=== PATIENT | female | born 1930 | race Caucasian/White ===

== ENCOUNTER 2017-10-21 10:05 | Inpatient (IN) ==
[2017-10-21 10:59] LABS: Basophils % 0.4 % (0.0-0.8); Eosinophils # 0.1 10*3/uL (0.0-0.87); Eosinophils % 1.7 % (0.00-10.9); Hematocrit 28.9 VOL% (35.7-47.0); Hemoglobin 9.2 GM/DL (12.0-16.0); Immature Granulocytes % 0.4 %; Immature Granulocytes Absolute 0.03 #; Lymphocytes # 1.4 10*3/uL (1.4-4.0); Lymphocytes % 18.9 % (21.3-54.2); Mean Corpuscular HGB Conc 31.8 GM/DL (32-36); Mean Corpuscular Hemoglobin 31 PG (27-34); Mean Corpuscular Volume 96.7 FL (87-102); Mean Platelet Volume 9.4 FL (9.6-12.0); Monocytes # 0.6 10*3/uL (0.11-0.8); Monocytes % 8.3 % (1.7-12.7); Neutrophils % 70.3 % (38.7-73.9); Platelet Count 190 T/CUMM (130-400); Red Blood Count 2.99 MC/CUMM (3.8-5.5); Red Cell Distribution Width 14.9 % (9.3-17.3); White Blood Count 7.1 T/CUMM (4-12)
[2017-10-21 11:10] LABS: Alanine Aminotransferase 20 U/L (13-56); Albumin 3.2 G/DL (3.4-5.0); Alkaline Phosphatase 67 U/L (45-117); Aspartate Amino Transferase 22 U/L (0-37); Bilirubin,Total < 0.39 MG/DL (0.2-1.0); Blood Urea Nitrogen 29 MG/DL (7-18); Calcium 9.1 MG/DL (8.5-10.1); Glucose 99 MG/DL (74-106); Osmolality,Calculated 282.5 MOS/KG (273-304); Potassium 4.5 MMOL/L (3.5-5.1); Sodium 139 MMOL/L (136-145); Total Protein 7.1 G/DL (6.4-8.3)
[2017-10-21 12:06] LABS: Apearance,Urine CLEAR (Clear); Bilirubin,Urine Negative (Negative); Blood, Urine Negative (Negative); Glucose,Urine (UA) Negative (Negative); Ketones,Urine Negative (Negative); Nitrite,Urine Negative (Negative); Protein,Urine Negative; RBC,Urine 1 /HPF (0-4); Squamous Epithelial Cell,Urine Occasional /HPF (0-10); Urine Color Straw (Yellow); Urine Specific Gravity 1.012 (1.001-1.035); Urine Urobilinogen < 2.0 EU/DL (0.2-1.0); WBC,Urine 1 /HPF (0-6)
[2017-10-21 14:05] LABS: PT Patient Result 56.9 SECS
[2017-10-21 14:07] LABS: INR 5.7; Partial Thromboplastin Time 45.5 SECS (0-40)
[2017-10-21] MEDS ORDERED: methylPREDNISolone SOD SUC 125 MG/2 ML VIAL ONE (14:10)
[2017-10-21] MEDS ORDERED: diphenhydrAMINE 50 MG/1 ML VIAL ONE (14:10)
[2017-10-21] MEDS ORDERED: MORPHINE 4 MG/1 ML VIAL ONE (14:20)
[2017-10-21] MEDS ORDERED: ONDANSETRON 4 MG/2 ML VIAL ONE (14:25)
[2017-10-21] MEDS ORDERED: cefTRIAXone 1,000 MG in SODIUM CHLORIDE 0.9% 100 ML IV STA (14:32)
[2017-10-21] MEDS ORDERED: AZITHROMYCIN INJ 500 MG in SODIUM CHLORIDE 0.9% 250 ML IV STA (14:32)
[2017-10-21] MEDS ORDERED: ALBUTEROL 2.5 MG/3 ML NEB RESP TX PRN (14:57)
[2017-10-21] MEDS ORDERED: FUROSEMIDE 40 MG/4 ML VIAL IV STA (15:11)
[2017-10-21] MEDS ORDERED: diphenhydrAMINE 50 MG/1 ML VIAL IV STA (15:25)
[2017-10-21] MEDS ORDERED: ONDANSETRON 4 MG/2 ML VIAL IV STA (15:25)
[2017-10-21] MEDS ORDERED: MORPHINE 4 MG/1 ML VIAL IV STA (15:25)
[2017-10-21] MEDS ORDERED: methylPREDNISolone SOD SUC 125 MG/2 ML VIAL IV STA (15:25)
[2017-10-21] MEDS ORDERED: FUROSEMIDE 20 MG/2 ML VIAL IV SCH (16:00)
[2017-10-21] MEDS ORDERED: AZITHROMYCIN INJ 500 MG in SODIUM CHLORIDE 0.9% 250 ML IV SCH (18:00)
[2017-10-21] MEDS ORDERED: cefTRIAXone 1,000 MG in SYRINGE 1 EACH IV SCH (18:00)
[2017-10-21] MEDS: ALBUTEROL/IPRATROPIUM 3 ML NEB RESP TX SCH (19:39)
[2017-10-21] MEDS: guaiFENesin/DM ER 600-30 MG TABLET PO SCH (20:40)
[2017-10-21] MEDS ORDERED: BISACODYL 5 MG TABLET PO SCH (21:00)
[2017-10-22] MEDS: ALBUTEROL/IPRATROPIUM 3 ML NEB RESP TX SCH ×4 (00:20→19:04)
[2017-10-22] MEDS ORDERED: NITROGLYCERIN SL 0.4 MG TABLET SL PRN (01:31)
[2017-10-22] MEDS ORDERED: NITROGLYCERIN SL 0.4 MG TABLET SL ONE (01:32)
[2017-10-22] MEDS: MORPHINE 4 MG/1 ML VIAL IV PRN ×3 (01:38→22:41)
[2017-10-22 01:51] LABS: Basophils % 0.1 % (0.0-0.8); Hematocrit 27.1 VOL% (35.7-47.0); Immature Granulocytes % 0.9 %; Immature Granulocytes Absolute 0.07 #; Lymphocytes # 0.9 10*3/uL (1.4-4.0); Lymphocytes % 11.5 % (21.3-54.2); Mean Corpuscular HGB Conc 33.2 GM/DL (32-36); Mean Corpuscular Hemoglobin 32 PG (27-34); Mean Corpuscular Volume 95.1 FL (87-102); Mean Platelet Volume 9.6 FL (9.6-12.0); Monocytes # 0.1 10*3/uL (0.11-0.8); Monocytes % 0.7 % (1.7-12.7); Neutrophils # 6.6 10*3/uL (1.4-7.4); Neutrophils % 86.8 % (38.7-73.9); Platelet Count 185 T/CUMM (130-400); Red Blood Count 2.85 MC/CUMM (3.8-5.5); Red Cell Distribution Width 15.1 % (9.3-17.3); White Blood Count 7.6 T/CUMM (4-12)
[2017-10-22 02:15] LABS: Alanine Aminotransferase 17 U/L (13-56); Alanine Aminotransferase 19 U/L (13-56); Albumin 3.1 G/DL (3.4-5.0); Albumin 3.5 G/DL (3.4-5.0); Alkaline Phosphatase 68 U/L (45-117); Alkaline Phosphatase 69 U/L (45-117); Aspartate Amino Transferase 18 U/L (0-37); Aspartate Amino Transferase 20 U/L (0-37); Bilirubin,Total < 0.39 MG/DL (0.2-1.0); Blood Urea Nitrogen 33 MG/DL (7-18); Blood Urea Nitrogen 34 MG/DL (7-18); Calcium 8.7 MG/DL (8.5-10.1); Glucose 157 MG/DL (74-106); Glucose 160 MG/DL (74-106); Osmolality,Calculated 282.8 MOS/KG (273-304); Osmolality,Calculated 283.8 MOS/KG (273-304); Potassium 4.1 MMOL/L (3.5-5.1); Sodium 137 MMOL/L (136-145); Total Protein 7.3 G/DL (6.4-8.3)
[2017-10-22 02:36] LABS: Partial Thromboplastin Time 52.3 SECS (0-40)
[2017-10-22] MEDS: NITROGLYCERIN 2% OINT 1 INCH/GM PACK TOP ONE ×2 (02:51→03:10)
[2017-10-22] MEDS: LABETALOL 20 MG/4 ML SYRINGE IV ONE ×2 (02:52→04:50)
[2017-10-22 03:00] LABS: Platelet Estimate Normal
[2017-10-22] MEDS ORDERED: FUROSEMIDE 20 MG/2 ML VIAL IV SCH (08:00)
[2017-10-22] MEDS ORDERED: PANTOPRAZOLE 40 MG TABLET PO SCH (09:00)
[2017-10-22] MEDS: IRON (CARBONYL) 45 MG TABLET PO SCH (10:12)
[2017-10-22] MEDS: amLODIPine 5 MG TABLET PO SCH (10:12)
[2017-10-22] MEDS: OMEGA 3 ACID ETHYL ESTERS 1 GM CAPSULE PO SCH (10:12)
[2017-10-22] MEDS: guaiFENesin/DM ER 600-30 MG TABLET PO SCH ×2 (10:12→21:22)
[2017-10-22] MEDS: PARoxetine 20 MG TABLET PO SCH (10:13)
[2017-10-22] MEDS: PANTOPRAZOLE 40 MG TABLET PO SCH ×2 (10:13→21:23)
[2017-10-22] MEDS: ISOSORBIDE MONONITRATE 60 MG TABLET PO SCH (10:13)
[2017-10-22] MEDS: COENZYME Q10 100 MG CAPSULE PO SCH (10:14)
[2017-10-22] MEDS: POLYETHYLENE GLYCOL POWDER 17 GM PACK PO SCH ×2 (10:20→21:27)
[2017-10-22] MEDS ORDERED: SODIUM CHLORIDE 0.9% 1,000 ML IV PRN (12:45)
[2017-10-22] MEDS ORDERED: ALUM/MAG/SIMETH/LIDO VISC 1:1 30 ML BOTTLE PO ONE ×2 (13:36→13:37)
[2017-10-22] MEDS ORDERED: HYOSCYAMINE 0.125 MG TABLET PO PRN (14:12)
[2017-10-22] MEDS ORDERED: AZITHROMYCIN INJ 500 MG in SODIUM CHLORIDE 0.9% 250 ML IV SCH (15:00)
[2017-10-22] MEDS ORDERED: ALUM/MAG/SIMETH/LIDO VISC 1:1 30 ML BOTTLE PO PRN (16:13)
[2017-10-22] MEDS: GABAPENTIN 100 MG CAPSULE PO SCH ×2 (16:30→21:23)
[2017-10-22] MEDS: ACETAMINOPHEN 325 MG TABLET PO SCH ×2 (16:30→21:22)
[2017-10-22] MEDS: LIDOCAINE 5% PATCH TRANSDERM SCH (16:30)
[2017-10-22 16:53] LABS: Hematocrit 21.5 VOL% (35.7-47.0); Hemoglobin 6.7 GM/DL (12.0-16.0)
[2017-10-22] MEDS: cefTRIAXone 1,000 MG in SYRINGE 1 EACH IV SCH (18:20)
[2017-10-22] MEDS ORDERED: CHOLESTOFF PO SCH (21:00)
[2017-10-22] MEDS: HYOSCYAMINE 0.125 MG TABLET PO SCH (21:22)
[2017-10-22] MEDS ORDERED: traZODone 50 MG TABLET PO ONE (23:35)
[2017-10-23] MEDS: ALBUTEROL/IPRATROPIUM 3 ML NEB RESP TX SCH ×4 (01:24→18:56)
[2017-10-23 05:16] LABS: Basophils % 0.4 % (0.0-0.8); Eosinophils # 0.1 10*3/uL (0.0-0.87); Eosinophils % 0.6 % (0.00-10.9); Hematocrit 29.1 VOL% (35.7-47.0); Hemoglobin 9.2 GM/DL (12.0-16.0); Immature Granulocytes % 0.6 %; Immature Granulocytes Absolute 0.05 #; Lymphocytes # 1.3 10*3/uL (1.4-4.0); Lymphocytes % 15.6 % (21.3-54.2); Mean Corpuscular HGB Conc 31.6 GM/DL (32-36); Mean Corpuscular Hemoglobin 31 PG (27-34); Mean Platelet Volume 9.4 FL (9.6-12.0); Monocytes # 0.8 10*3/uL (0.11-0.8); Monocytes % 9.2 % (1.7-12.7); Neutrophils # 6.2 10*3/uL (1.4-7.4); Neutrophils % 73.6 % (38.7-73.9); Platelet Count 157 T/CUMM (130-400); Red Cell Distribution Width 15.8 % (9.3-17.3); White Blood Count 8.5 T/CUMM (4-12)
[2017-10-23 05:24] LABS: Hematocrit 28.4 VOL% (35.7-47.0); Hemoglobin 9.4 GM/DL (12.0-16.0)
[2017-10-23 05:34] LABS: Calcium 8.1 MG/DL (8.5-10.1); Osmolality,Calculated 290.1 MOS/KG (273-304); Potassium 4.4 MMOL/L (3.5-5.1)
[2017-10-23 05:37] LABS: Albumin 3.1 G/DL (3.4-5.0); Bilirubin,Total 0.4 MG/DL (0.2-1.0); CKMB % 4.9 %; Calcium 8.1 MG/DL (8.5-10.1); Osmolality,Calculated 288.3 MOS/KG (273-304); Potassium 4.3 MMOL/L (3.5-5.1); Total Protein 6.6 G/DL (6.4-8.3)
[2017-10-23] MEDS: ISOSORBIDE MONONITRATE 60 MG TABLET PO SCH (09:00)
[2017-10-23] MEDS: amLODIPine 5 MG TABLET PO SCH (09:00)
[2017-10-23] MEDS: LISINOPRIL 20 MG TABLET PO SCH (09:00)
[2017-10-23 09:59] LABS: INR 2.9
[2017-10-23 10:05] LABS: PT Patient Result 29.6 SECS
[2017-10-23] MEDS: POLYETHYLENE GLYCOL POWDER 17 GM PACK PO SCH ×2 (10:55→22:48)
[2017-10-23] MEDS: GABAPENTIN 100 MG CAPSULE PO SCH ×3 (10:55→21:24)
[2017-10-23] MEDS: ACETAMINOPHEN 325 MG TABLET PO SCH ×2 (10:55→21:25)
[2017-10-23] MEDS: HYOSCYAMINE 0.125 MG TABLET PO SCH ×2 (10:55→22:48)
[2017-10-23] MEDS: PARoxetine 20 MG TABLET PO SCH (10:55)
[2017-10-23] MEDS: IRON (CARBONYL) 45 MG TABLET PO SCH (10:55)
[2017-10-23] MEDS: AZITHROMYCIN 250 MG TABLET PO SCH (10:55)
[2017-10-23] MEDS: COENZYME Q10 100 MG CAPSULE PO SCH (10:55)
[2017-10-23] MEDS: PANTOPRAZOLE 40 MG TABLET PO SCH ×2 (10:55→22:48)
[2017-10-23] MEDS: LIDOCAINE 5% PATCH TRANSDERM SCH (10:55)
[2017-10-23] MEDS: OMEGA 3 ACID ETHYL ESTERS 1 GM CAPSULE PO SCH (10:55)
[2017-10-23] MEDS: DOCUSATE SODIUM 100 MG CAPSULE PO SCH (10:55)
[2017-10-23] MEDS: guaiFENesin/DM ER 600-30 MG TABLET PO SCH ×2 (10:55→22:48)
[2017-10-23] MEDS ORDERED: ALPRAZolam 0.25 MG TABLET PO PRN (13:06)
[2017-10-23] MEDS ORDERED: PHYTONADIONE 10 MG/1 ML AMP SUBCUT ONE (13:13)
[2017-10-23] MEDS: cefTRIAXone 1,000 MG in SYRINGE 1 EACH IV SCH (14:55)
[2017-10-24] MEDS: ALBUTEROL/IPRATROPIUM 3 ML NEB RESP TX SCH ×4 (00:41→20:01)
[2017-10-24 04:49] LABS: Basophils % 0.5 % (0.0-0.8); Eosinophils # 0.3 10*3/uL (0.0-0.87); Eosinophils % 4.8 % (0.00-10.9); Hematocrit 28.8 VOL% (35.7-47.0); Hemoglobin 9.1 GM/DL (12.0-16.0); Immature Granulocytes % 0.3 %; Immature Granulocytes Absolute 0.02 #; Lymphocytes # 0.8 10*3/uL (1.4-4.0); Lymphocytes % 13.8 % (21.3-54.2); Mean Corpuscular HGB Conc 31.6 GM/DL (32-36); Mean Corpuscular Hemoglobin 31 PG (27-34); Mean Corpuscular Volume 96.6 FL (87-102); Mean Platelet Volume 9.7 FL (9.6-12.0); Monocytes # 0.6 10*3/uL (0.11-0.8); Monocytes % 9.5 % (1.7-12.7); Neutrophils # 4.3 10*3/uL (1.4-7.4); Neutrophils % 71.1 % (38.7-73.9); Platelet Count 158 T/CUMM (130-400); Red Blood Count 2.98 MC/CUMM (3.8-5.5); Red Cell Distribution Width 15.9 % (9.3-17.3); White Blood Count 6.1 T/CUMM (4-12)
[2017-10-24 04:55] LABS: INR 2.3
[2017-10-24 04:56] LABS: INR 2.3
[2017-10-24 04:58] LABS: PT Patient Result 23.1 SECS; PT Patient Result 23.3 SECS
[2017-10-24 05:08] LABS: Albumin 2.6 G/DL (3.4-5.0); Bilirubin,Total 0.4 MG/DL (0.2-1.0); Calcium 8.1 MG/DL (8.5-10.1); Osmolality,Calculated 283.4 MOS/KG (273-304); Potassium 4.2 MMOL/L (3.5-5.1)
[2017-10-24 05:13] LABS: Calcium 8.3 MG/DL (8.5-10.1); Osmolality,Calculated 286.3 MOS/KG (273-304); Potassium 4.3 MMOL/L (3.5-5.1)
[2017-10-24] MEDS ORDERED: PROPOFOL 200 MG/20 ML VIAL IV ONE (08:38)
[2017-10-24] MEDS ORDERED: LIDOCAINE 100 MG/5 ML SYRINGE ONE (08:38)
[2017-10-24] MEDS ORDERED: PHYTONADIONE 10 MG/1 ML AMP IV ONE (08:56)
[2017-10-24] MEDS: COENZYME Q10 100 MG CAPSULE PO SCH (10:59)
[2017-10-24] MEDS: LIDOCAINE 5% PATCH TRANSDERM SCH (11:01)
[2017-10-24] MEDS: DOCUSATE SODIUM 100 MG CAPSULE PO SCH (11:01)
[2017-10-24] MEDS: HYOSCYAMINE 0.125 MG TABLET PO SCH ×2 (11:01→20:13)
[2017-10-24] MEDS: IRON (CARBONYL) 45 MG TABLET PO SCH (11:01)
[2017-10-24] MEDS: BISACODYL 5 MG TABLET PO SCH ×2 (11:01→16:55)
[2017-10-24] MEDS: ISOSORBIDE MONONITRATE 60 MG TABLET PO SCH (11:01)
[2017-10-24] MEDS: GABAPENTIN 100 MG CAPSULE PO SCH ×3 (11:02→20:13)
[2017-10-24] MEDS: guaiFENesin/DM ER 600-30 MG TABLET PO SCH ×2 (11:02→20:13)
[2017-10-24] MEDS: LISINOPRIL 20 MG TABLET PO SCH (11:02)
[2017-10-24] MEDS: amLODIPine 5 MG TABLET PO SCH (11:02)
[2017-10-24] MEDS: PANTOPRAZOLE 40 MG TABLET PO SCH ×2 (11:02→20:13)
[2017-10-24] MEDS: OMEGA 3 ACID ETHYL ESTERS 1 GM CAPSULE PO SCH (11:02)
[2017-10-24] MEDS: PARoxetine 20 MG TABLET PO SCH (11:02)
[2017-10-24] MEDS: ACETAMINOPHEN 325 MG TABLET PO SCH ×2 (11:02→20:14)
[2017-10-24] MEDS: POLYETHYLENE GLYCOL POWDER 17 GM PACK PO SCH ×2 (11:02→20:14)
[2017-10-24] MEDS: AZITHROMYCIN 250 MG TABLET PO SCH (11:03)
[2017-10-24] MEDS: cefTRIAXone 1,000 MG in SYRINGE 1 EACH IV SCH (15:50)
[2017-10-24] MEDS ORDERED: POLYETHYLENE GLYCOL POWDER 255 GM BOTTLE PO ONE (18:00)
[2017-10-24] MEDS ORDERED: MAGNESIUM CITRATE 300 ML BOTTLE PO ONE (21:00)
[2017-10-25] MEDS: BISACODYL 5 MG TABLET PO SCH (00:08)
[2017-10-25] MEDS: ALBUTEROL/IPRATROPIUM 3 ML NEB RESP TX SCH ×4 (00:21→20:16)
[2017-10-25 05:43] LABS: Basophils % 0.3 % (0.0-0.8); Eosinophils # 0.3 10*3/uL (0.0-0.87); Eosinophils % 4.2 % (0.00-10.9); Hematocrit 29.1 VOL% (35.7-47.0); Hemoglobin 9.1 GM/DL (12.0-16.0); Immature Granulocytes % 0.3 %; Immature Granulocytes Absolute 0.02 #; Lymphocytes # 0.6 10*3/uL (1.4-4.0); Lymphocytes % 9.5 % (21.3-54.2); Mean Corpuscular HGB Conc 31.3 GM/DL (32-36); Mean Corpuscular Hemoglobin 30 PG (27-34); Mean Corpuscular Volume 97.3 FL (87-102); Mean Platelet Volume 9.4 FL (9.6-12.0); Monocytes # 0.6 10*3/uL (0.11-0.8); Monocytes % 9.2 % (1.7-12.7); Neutrophils # 4.7 10*3/uL (1.4-7.4); Neutrophils % 76.5 % (38.7-73.9); Platelet Count 159 T/CUMM (130-400); Red Blood Count 2.99 MC/CUMM (3.8-5.5); Red Cell Distribution Width 14.8 % (9.3-17.3); White Blood Count 6.1 T/CUMM (4-12)
[2017-10-25 06:03] LABS: Calcium 8.1 MG/DL (8.5-10.1); Osmolality,Calculated 279.4 MOS/KG (273-304); Potassium 3.6 MMOL/L (3.5-5.1)
[2017-10-25 06:06] LABS: INR 1.3; PT Patient Result 13.6 SECS; PT Patient Result 13.7 SECS; Partial Thromboplastin Time 29.8 SECS (0-40)
[2017-10-25] MEDS ORDERED: PROPOFOL 200 MG/20 ML VIAL IV ONE (09:00)
[2017-10-25] MEDS ORDERED: LIDOCAINE 100 MG/5 ML SYRINGE ONE (09:00)
[2017-10-25] MEDS: DOCUSATE SODIUM 100 MG CAPSULE PO SCH (10:18)
[2017-10-25] MEDS: COENZYME Q10 100 MG CAPSULE PO SCH (10:18)
[2017-10-25] MEDS: IRON (CARBONYL) 45 MG TABLET PO SCH (10:18)
[2017-10-25] MEDS: PARoxetine 20 MG TABLET PO SCH (10:19)
[2017-10-25] MEDS: POLYETHYLENE GLYCOL POWDER 17 GM PACK PO SCH ×2 (10:19→21:27)
[2017-10-25] MEDS: GABAPENTIN 100 MG CAPSULE PO SCH ×3 (10:19→21:27)
[2017-10-25] MEDS: OMEGA 3 ACID ETHYL ESTERS 1 GM CAPSULE PO SCH (10:19)
[2017-10-25] MEDS: amLODIPine 5 MG TABLET PO SCH (10:19)
[2017-10-25] MEDS: guaiFENesin/DM ER 600-30 MG TABLET PO SCH ×2 (10:19→21:26)
[2017-10-25] MEDS: HYOSCYAMINE 0.125 MG TABLET PO SCH ×2 (10:19→21:26)
[2017-10-25] MEDS: ISOSORBIDE MONONITRATE 60 MG TABLET PO SCH (10:19)
[2017-10-25] MEDS: LIDOCAINE 5% PATCH TRANSDERM SCH (10:19)
[2017-10-25] MEDS: AZITHROMYCIN 250 MG TABLET PO SCH (10:20)
[2017-10-25] MEDS: PANTOPRAZOLE 40 MG TABLET PO SCH ×2 (10:20→21:26)
[2017-10-25] MEDS: LISINOPRIL 20 MG TABLET PO SCH (10:20)
[2017-10-25] MEDS: ACETAMINOPHEN 325 MG TABLET PO SCH ×2 (10:20→21:26)
[2017-10-25 15:07] LABS: Basophils % 0.5 % (0.0-0.8); Eosinophils # 0.2 10*3/uL (0.0-0.87); Eosinophils % 3.5 % (0.00-10.9); Hematocrit 26.6 VOL% (35.7-47.0); Hemoglobin 8.5 GM/DL (12.0-16.0); Immature Granulocytes % 0.3 %; Immature Granulocytes Absolute 0.02 #; Lymphocytes # 0.8 10*3/uL (1.4-4.0); Lymphocytes % 12.1 % (21.3-54.2); Mean Corpuscular Hemoglobin 31 PG (27-34); Mean Corpuscular Volume 97.8 FL (87-102); Mean Platelet Volume 9.4 FL (9.6-12.0); Monocytes # 0.7 10*3/uL (0.11-0.8); Monocytes % 10.4 % (1.7-12.7); Neutrophils # 4.6 10*3/uL (1.4-7.4); Neutrophils % 73.2 % (38.7-73.9); Platelet Count 159 T/CUMM (130-400); Red Blood Count 2.72 MC/CUMM (3.8-5.5); Red Cell Distribution Width 14.6 % (9.3-17.3); White Blood Count 6.3 T/CUMM (4-12)
[2017-10-25] MEDS: cefTRIAXone 1,000 MG in SYRINGE 1 EACH IV SCH (15:21)
[2017-10-25 15:25] LABS: Albumin 2.5 G/DL (3.4-5.0); Bilirubin,Total 0.4 MG/DL (0.2-1.0); Calcium 8.1 MG/DL (8.5-10.1); Osmolality,Calculated 279.4 MOS/KG (273-304); Potassium 3.4 MMOL/L (3.5-5.1); Total Protein 5.5 G/DL (6.4-8.3)
[2017-10-25 16:37] LABS: Apearance,Urine CLEAR (Clear); Bilirubin,Urine Negative (Negative); Blood, Urine Negative (Negative); Glucose,Urine (UA) Negative (Negative); Ketones,Urine Negative (Negative); Nitrite,Urine Negative (Negative); Protein,Urine Negative; RBC,Urine <1 /HPF (0-4); Urine Color Yellow (Yellow); Urine Specific Gravity 1.011 (1.001-1.035); Urine Urobilinogen < 2.0 EU/DL (0.2-1.0); WBC,Urine 1 /HPF (0-6)
[2017-10-25] MEDS: POTASSIUM CHLORIDE RIDER 10 MEQ in PREMIX 1 EACH IV PRN (17:17)
[2017-10-25] MEDS: PHENOL 1.4% THROAT SPRAY 177 ML BOTTLE PO PRN (21:28)
[2017-10-26] MEDS: ALBUTEROL/IPRATROPIUM 3 ML NEB RESP TX SCH ×4 (00:40→19:24)
[2017-10-26 03:56] LABS: Basophils % 0.3 % (0.0-0.8); Eosinophils # 0.3 10*3/uL (0.0-0.87); Eosinophils % 4.9 % (0.00-10.9); Hematocrit 27.5 VOL% (35.7-47.0); Hemoglobin 8.9 GM/DL (12.0-16.0); Immature Granulocytes % 0.5 %; Immature Granulocytes Absolute 0.03 #; Lymphocytes % 15.8 % (21.3-54.2); Mean Corpuscular HGB Conc 32.4 GM/DL (32-36); Mean Corpuscular Hemoglobin 31 PG (27-34); Mean Corpuscular Volume 94.8 FL (87-102); Mean Platelet Volume 10.2 FL (9.6-12.0); Monocytes # 0.6 10*3/uL (0.11-0.8); Monocytes % 9.8 % (1.7-12.7); Neutrophils # 4.2 10*3/uL (1.4-7.4); Neutrophils % 68.7 % (38.7-73.9); Platelet Count 146 T/CUMM (130-400); Red Cell Distribution Width 14.5 % (9.3-17.3); White Blood Count 6.2 T/CUMM (4-12)
[2017-10-26 04:05] LABS: INR 1.1; PT Patient Result 11.8 SECS
[2017-10-26 04:05] LABS: INR 1.1; PT Patient Result 11.8 SECS; Partial Thromboplastin Time 28.1 SECS (0-40)
[2017-10-26 04:21] LABS: Osmolality,Calculated 279.3 MOS/KG (273-304); Potassium 3.7 MMOL/L (3.5-5.1)
[2017-10-26] MEDS: POTASSIUM CHLORIDE RIDER 10 MEQ in PREMIX 1 EACH IV PRN ×2 (05:15→06:15)
[2017-10-26] MEDS: COENZYME Q10 100 MG CAPSULE PO SCH (08:57)
[2017-10-26] MEDS: IRON (CARBONYL) 45 MG TABLET PO SCH (08:58)
[2017-10-26] MEDS: DOCUSATE SODIUM 100 MG CAPSULE PO SCH (08:58)
[2017-10-26] MEDS: ISOSORBIDE MONONITRATE 60 MG TABLET PO SCH (08:59)
[2017-10-26] MEDS: OMEGA 3 ACID ETHYL ESTERS 1 GM CAPSULE PO SCH (08:59)
[2017-10-26] MEDS: HYOSCYAMINE 0.125 MG TABLET PO SCH ×2 (08:59→20:54)
[2017-10-26] MEDS: LIDOCAINE 5% PATCH TRANSDERM SCH (08:59)
[2017-10-26] MEDS: POLYETHYLENE GLYCOL POWDER 17 GM PACK PO SCH ×2 (09:00→20:55)
[2017-10-26] MEDS: guaiFENesin/DM ER 600-30 MG TABLET PO SCH ×2 (09:00→20:55)
[2017-10-26] MEDS: amLODIPine 5 MG TABLET PO SCH (09:00)
[2017-10-26] MEDS: GABAPENTIN 100 MG CAPSULE PO SCH ×3 (09:00→20:54)
[2017-10-26] MEDS: PARoxetine 20 MG TABLET PO SCH (09:01)
[2017-10-26] MEDS: LISINOPRIL 20 MG TABLET PO SCH (09:01)
[2017-10-26] MEDS: PANTOPRAZOLE 40 MG TABLET PO SCH ×2 (09:01→20:55)
[2017-10-26] MEDS: ACETAMINOPHEN 325 MG TABLET PO SCH ×3 (09:02→21:00)
[2017-10-26] MEDS: PHENOL 1.4% THROAT SPRAY 177 ML BOTTLE PO PRN (09:07)
[2017-10-26] MEDS: NYSTATIN 500,000 UNIT/5 ML UDCUP SWISH/SWAL SCH ×3 (14:33→20:55)
[2017-10-26] MEDS ORDERED: WARFARIN 2.5 MG TABLET PO SCH (18:00)
[2017-10-27] MEDS: ALBUTEROL/IPRATROPIUM 3 ML NEB RESP TX SCH ×2 (00:29→07:17)
[2017-10-27 07:04] LABS: Basophils % 0.3 % (0.0-0.8); Eosinophils # 0.2 10*3/uL (0.0-0.87); Eosinophils % 2.5 % (0.00-10.9); Hematocrit 31.1 VOL% (35.7-47.0); Immature Granulocytes % 0.4 %; Immature Granulocytes Absolute 0.04 #; Mean Corpuscular HGB Conc 32.2 GM/DL (32-36); Mean Corpuscular Hemoglobin 31 PG (27-34); Mean Corpuscular Volume 96.9 FL (87-102); Mean Platelet Volume 9.5 FL (9.6-12.0); Monocytes # 0.7 10*3/uL (0.11-0.8); Monocytes % 8.2 % (1.7-12.7); Neutrophils % 77.6 % (38.7-73.9); Platelet Count 193 T/CUMM (130-400); Red Blood Count 3.21 MC/CUMM (3.8-5.5); Red Cell Distribution Width 14.2 % (9.3-17.3)
[2017-10-27 07:17] LABS: Calcium 8.7 MG/DL (8.5-10.1); Osmolality,Calculated 275.5 MOS/KG (273-304); Potassium 3.9 MMOL/L (3.5-5.1)
[2017-10-27 07:20] LABS: PT Patient Result 10.7 SECS; Partial Thromboplastin Time 28.2 SECS (0-40)
[2017-10-27] MEDS ORDERED: ALBUTEROL/IPRATROPIUM 3 ML NEB RESP TX PRN (07:55)
[2017-10-27] MEDS: guaiFENesin/DM ER 600-30 MG TABLET PO SCH ×2 (08:01→20:08)
[2017-10-27] MEDS: LISINOPRIL 20 MG TABLET PO SCH (08:01)
[2017-10-27] MEDS: POLYETHYLENE GLYCOL POWDER 17 GM PACK PO SCH ×3 (08:01→20:09)
[2017-10-27] MEDS: OMEGA 3 ACID ETHYL ESTERS 1 GM CAPSULE PO SCH (08:02)
[2017-10-27] MEDS: amLODIPine 5 MG TABLET PO SCH (08:02)
[2017-10-27] MEDS: NYSTATIN 500,000 UNIT/5 ML UDCUP SWISH/SWAL SCH ×4 (08:02→20:08)
[2017-10-27] MEDS: ACETAMINOPHEN 325 MG TABLET PO SCH (08:02)
[2017-10-27] MEDS: PARoxetine 20 MG TABLET PO SCH (08:02)
[2017-10-27] MEDS: DOCUSATE SODIUM 100 MG CAPSULE PO SCH (08:02)
[2017-10-27] MEDS: ISOSORBIDE MONONITRATE 60 MG TABLET PO SCH (08:02)
[2017-10-27] MEDS: PANTOPRAZOLE 40 MG TABLET PO SCH ×2 (08:02→20:08)
[2017-10-27] MEDS: HYOSCYAMINE 0.125 MG TABLET PO SCH ×2 (08:03→20:09)
[2017-10-27] MEDS: APIXABAN 2.5 MG TABLET PO SCH ×2 (08:46→20:09)
[2017-10-27] MEDS: COENZYME Q10 100 MG CAPSULE PO SCH (08:47)
[2017-10-27] MEDS: IRON (CARBONYL) 45 MG TABLET PO SCH (08:47)
[2017-10-27 10:15] LABS: ABG Base Excess 2.9 MMOL/L (-2.5-2.5); ABG Oxygen Saturation 95.7 % (95-100); ABG PCO2 39.4 MM HG (35-48); ABG PH 7.446 (7.35-7.45); ABG PO2 72.9 MM HG (80-95); ABG TCO2 25.1 MMOL/L (23-27); Allen Test Positive
[2017-10-27] MEDS ORDERED: ACETAMINOPHEN 325 MG SUPP RECTAL PRN ×2 (11:49→18:29)
[2017-10-27] MEDS ORDERED: FLUCONAZOLE 200 MG TABLET PO ONE (12:30)
[2017-10-27] MEDS: ACETAMINOPHEN 650 MG SUPP RECTAL PRN (18:48)
[2017-10-27] MEDS: VANCOMYCIN INJ 1,250 MG in SODIUM CHLORIDE 0.9% 250 ML IV SCH (19:45)
[2017-10-28] MEDS: ACETAMINOPHEN 325 MG TABLET PO SCH ×3 (00:31→21:08)
[2017-10-28] MEDS: ACETAMINOPHEN 650 MG SUPP RECTAL PRN (00:40)
[2017-10-28 06:00] LABS: Basophils % 0.4 % (0.0-0.8); Eosinophils # 0.2 10*3/uL (0.0-0.87); Eosinophils % 2.5 % (0.00-10.9); Hematocrit 25.8 VOL% (35.7-47.0); Hemoglobin 8.3 GM/DL (12.0-16.0); Immature Granulocytes % 0.6 %; Immature Granulocytes Absolute 0.04 #; Lymphocytes # 0.9 10*3/uL (1.4-4.0); Lymphocytes % 12.7 % (21.3-54.2); Mean Corpuscular HGB Conc 32.2 GM/DL (32-36); Mean Corpuscular Hemoglobin 31 PG (27-34); Mean Corpuscular Volume 95.6 FL (87-102); Mean Platelet Volume 9.7 FL (9.6-12.0); Monocytes # 1.1 10*3/uL (0.11-0.8); NRBC # 0.02 10*3/uL; Neutrophils % 68.8 % (38.7-73.9); Platelet Count 170 T/CUMM (130-400); Red Cell Distribution Width 14.3 % (9.3-17.3); White Blood Count 7.3 T/CUMM (4-12)
[2017-10-28 06:07] LABS: INR 1.1; PT Patient Result 11.5 SECS
[2017-10-28 06:24] LABS: Calcium 8.1 MG/DL (8.5-10.1); Osmolality,Calculated 277.4 MOS/KG (273-304); Potassium 3.7 MMOL/L (3.5-5.1)
[2017-10-28] MEDS: POLYETHYLENE GLYCOL POWDER 17 GM PACK PO SCH ×2 (08:36→21:06)
[2017-10-28] MEDS: PANTOPRAZOLE 40 MG TABLET PO SCH ×2 (08:37→21:06)
[2017-10-28] MEDS: PARoxetine 20 MG TABLET PO SCH (08:37)
[2017-10-28] MEDS: ISOSORBIDE MONONITRATE 60 MG TABLET PO SCH (08:37)
[2017-10-28] MEDS: LISINOPRIL 20 MG TABLET PO SCH (08:37)
[2017-10-28] MEDS: OMEGA 3 ACID ETHYL ESTERS 1 GM CAPSULE PO SCH ×2 (08:37→08:42)
[2017-10-28] MEDS: guaiFENesin/DM ER 600-30 MG TABLET PO SCH ×2 (08:37→21:05)
[2017-10-28] MEDS: DOCUSATE SODIUM 100 MG CAPSULE PO SCH ×2 (08:37→08:42)
[2017-10-28] MEDS: IRON (CARBONYL) 45 MG TABLET PO SCH (08:37)
[2017-10-28] MEDS: APIXABAN 2.5 MG TABLET PO SCH ×2 (08:37→21:06)
[2017-10-28] MEDS: VANCOMYCIN INJ 1,250 MG in SODIUM CHLORIDE 0.9% 250 ML IV SCH ×3 (08:38→21:14)
[2017-10-28] MEDS: NYSTATIN 500,000 UNIT/5 ML UDCUP SWISH/SWAL SCH ×4 (08:38→21:05)
[2017-10-28] MEDS: HYOSCYAMINE 0.125 MG TABLET PO SCH ×2 (08:42→21:06)
[2017-10-28] MEDS: COENZYME Q10 100 MG CAPSULE PO SCH (08:42)
[2017-10-28] MEDS: amLODIPine 5 MG TABLET PO SCH (08:49)
[2017-10-28] MEDS: LACTOBACILLUS RHAMNOSUS GG CAPSULE PO SCH ×2 (12:05→21:05)
[2017-10-28] MEDS: FLUCONAZOLE INJ 100 MG in IV BAG 1 EACH IV SCH (12:06)
[2017-10-29 05:55] LABS: Basophils % 0.5 % (0.0-0.8); Eosinophils # 0.4 10*3/uL (0.0-0.87); Eosinophils % 6.4 % (0.00-10.9); Hematocrit 25.4 VOL% (35.7-47.0); Hemoglobin 8.2 GM/DL (12.0-16.0); Immature Granulocytes % 0.5 %; Immature Granulocytes Absolute 0.03 #; Lymphocytes # 0.8 10*3/uL (1.4-4.0); Lymphocytes % 14.9 % (21.3-54.2); Mean Corpuscular HGB Conc 32.3 GM/DL (32-36); Mean Corpuscular Hemoglobin 31 PG (27-34); Mean Corpuscular Volume 96.2 FL (87-102); Mean Platelet Volume 9.4 FL (9.6-12.0); Monocytes # 0.7 10*3/uL (0.11-0.8); Monocytes % 11.9 % (1.7-12.7); NRBC # 0.02 10*3/uL; Neutrophils # 3.7 10*3/uL (1.4-7.4); Neutrophils % 65.8 % (38.7-73.9); Platelet Count 165 T/CUMM (130-400); Red Blood Count 2.64 MC/CUMM (3.8-5.5); White Blood Count 5.6 T/CUMM (4-12)
[2017-10-29 06:18] LABS: Calcium 8.1 MG/DL (8.5-10.1); Calcium 8.3 MG/DL (8.5-10.1); Osmolality,Calculated 277.4 MOS/KG (273-304); Osmolality,Calculated 279.3 MOS/KG (273-304); Potassium 3.6 MMOL/L (3.5-5.1); Potassium 3.7 MMOL/L (3.5-5.1)
[2017-10-29 06:23] LABS: INR 1.1; PT Patient Result 11.4 SECS
[2017-10-29] MEDS: ISOSORBIDE MONONITRATE 60 MG TABLET PO SCH (09:00)
[2017-10-29] MEDS: amLODIPine 5 MG TABLET PO SCH (09:00)
[2017-10-29] MEDS: APIXABAN 2.5 MG TABLET PO SCH ×2 (09:01→20:35)
[2017-10-29] MEDS: PARoxetine 20 MG TABLET PO SCH (09:02)
[2017-10-29] MEDS: LISINOPRIL 20 MG TABLET PO SCH (09:03)
[2017-10-29] MEDS: ACETAMINOPHEN 325 MG TABLET PO SCH ×2 (09:04→20:35)
[2017-10-29] MEDS: DOCUSATE SODIUM 100 MG CAPSULE PO SCH (09:04)
[2017-10-29] MEDS: OMEGA 3 ACID ETHYL ESTERS 1 GM CAPSULE PO SCH (09:05)
[2017-10-29] MEDS: PANTOPRAZOLE 40 MG TABLET PO SCH ×2 (09:06→20:36)
[2017-10-29] MEDS: LACTOBACILLUS RHAMNOSUS GG CAPSULE PO SCH ×2 (09:06→20:36)
[2017-10-29] MEDS: COENZYME Q10 100 MG CAPSULE PO SCH (09:06)
[2017-10-29] MEDS: HYOSCYAMINE 0.125 MG TABLET PO SCH ×2 (09:08→20:35)
[2017-10-29] MEDS: IRON (CARBONYL) 45 MG TABLET PO SCH (09:09)
[2017-10-29] MEDS: guaiFENesin/DM ER 600-30 MG TABLET PO SCH ×2 (09:09→20:35)
[2017-10-29] MEDS: POLYETHYLENE GLYCOL POWDER 17 GM PACK PO SCH ×2 (09:10→20:34)
[2017-10-29] MEDS: NYSTATIN 500,000 UNIT/5 ML UDCUP SWISH/SWAL SCH ×4 (09:10→20:37)
[2017-10-29] MEDS: VANCOMYCIN INJ 1,250 MG in SODIUM CHLORIDE 0.9% 250 ML IV SCH (09:11)
[2017-10-29] MEDS: FLUCONAZOLE INJ 100 MG in IV BAG 1 EACH IV SCH (12:02)
[2017-10-29] MEDS ORDERED: SODIUM CHLORIDE 0.9% 1,000 ML IV PRN ×2 (15:35→16:17)
[2017-10-30 08:23] LABS: Basophils % 0.7 % (0.0-0.8); Eosinophils # 0.3 10*3/uL (0.0-0.87); Eosinophils % 4.6 % (0.00-10.9); Hematocrit 33.3 VOL% (35.7-47.0); Immature Granulocytes % 0.7 %; Immature Granulocytes Absolute 0.04 #; Lymphocytes # 0.9 10*3/uL (1.4-4.0); Lymphocytes % 15.1 % (21.3-54.2); Mean Corpuscular HGB Conc 33.9 GM/DL (32-36); Mean Corpuscular Hemoglobin 31 PG (27-34); Mean Platelet Volume 9.7 FL (9.6-12.0); Monocytes # 0.8 10*3/uL (0.11-0.8); Monocytes % 13.2 % (1.7-12.7); Neutrophils # 3.7 10*3/uL (1.4-7.4); Neutrophils % 65.7 % (38.7-73.9); Platelet Count 165 T/CUMM (130-400); Red Cell Distribution Width 14.6 % (9.3-17.3); White Blood Count 5.7 T/CUMM (4-12)
[2017-10-30 08:32] LABS: Hemoglobin 11.3 GM/DL (12.0-16.0); Red Blood Count 3.62 MC/CUMM (3.8-5.5)
[2017-10-30 08:33] LABS: PT Patient Result 10.7 SECS
[2017-10-30] MEDS: APIXABAN 2.5 MG TABLET PO SCH ×2 (08:34→21:38)
[2017-10-30] MEDS: ACETAMINOPHEN 325 MG TABLET PO SCH ×2 (08:34→21:38)
[2017-10-30] MEDS: PARoxetine 20 MG TABLET PO SCH (08:34)
[2017-10-30] MEDS: DOCUSATE SODIUM 100 MG CAPSULE PO SCH (08:34)
[2017-10-30] MEDS: ISOSORBIDE MONONITRATE 60 MG TABLET PO SCH (08:34)
[2017-10-30] MEDS: guaiFENesin/DM ER 600-30 MG TABLET PO SCH ×2 (08:35→21:38)
[2017-10-30] MEDS: OMEGA 3 ACID ETHYL ESTERS 1 GM CAPSULE PO SCH (08:35)
[2017-10-30] MEDS: LACTOBACILLUS RHAMNOSUS GG CAPSULE PO SCH ×2 (08:35→21:38)
[2017-10-30] MEDS: COENZYME Q10 100 MG CAPSULE PO SCH (08:35)
[2017-10-30] MEDS: IRON (CARBONYL) 45 MG TABLET PO SCH (08:35)
[2017-10-30] MEDS: LISINOPRIL 5 MG TABLET PO SCH (08:35)
[2017-10-30] MEDS: PANTOPRAZOLE 40 MG TABLET PO SCH ×2 (08:35→21:38)
[2017-10-30] MEDS: HYOSCYAMINE 0.125 MG TABLET PO SCH ×2 (08:35→21:38)
[2017-10-30] MEDS: NYSTATIN 500,000 UNIT/5 ML UDCUP SWISH/SWAL SCH ×4 (08:36→21:39)
[2017-10-30] MEDS: POLYETHYLENE GLYCOL POWDER 17 GM PACK PO SCH ×3 (08:36→21:39)
[2017-10-30 08:53] LABS: Calcium 8.8 MG/DL (8.5-10.1); Osmolality,Calculated 277.4 MOS/KG (273-304)
[2017-10-31] MEDS: NYSTATIN 500,000 UNIT/5 ML UDCUP SWISH/SWAL SCH ×4 (08:14→20:59)
[2017-10-31] MEDS: LISINOPRIL 5 MG TABLET PO SCH (08:14)
[2017-10-31] MEDS: HYOSCYAMINE 0.125 MG TABLET PO SCH ×2 (08:15→20:59)
[2017-10-31] MEDS: PARoxetine 20 MG TABLET PO SCH (08:15)
[2017-10-31] MEDS: COENZYME Q10 100 MG CAPSULE PO SCH (08:15)
[2017-10-31] MEDS: PANTOPRAZOLE 40 MG TABLET PO SCH ×2 (08:15→20:59)
[2017-10-31] MEDS: LACTOBACILLUS RHAMNOSUS GG CAPSULE PO SCH ×2 (08:15→21:00)
[2017-10-31] MEDS: APIXABAN 2.5 MG TABLET PO SCH ×2 (08:15→20:59)
[2017-10-31] MEDS: DOCUSATE SODIUM 100 MG CAPSULE PO SCH (08:15)
[2017-10-31] MEDS: OMEGA 3 ACID ETHYL ESTERS 1 GM CAPSULE PO SCH (08:15)
[2017-10-31] MEDS: ISOSORBIDE MONONITRATE 60 MG TABLET PO SCH (08:15)
[2017-10-31] MEDS: guaiFENesin/DM ER 600-30 MG TABLET PO SCH ×2 (08:15→20:59)
[2017-10-31] MEDS: IRON (CARBONYL) 45 MG TABLET PO SCH (08:16)
[2017-10-31] MEDS: POLYETHYLENE GLYCOL POWDER 17 GM PACK PO SCH ×2 (08:16→21:00)
[2017-10-31] MEDS: ACETAMINOPHEN 325 MG TABLET PO SCH ×2 (08:20→20:59)
[2017-10-31] MEDS ORDERED: LACTULOSE 20 GM/30 ML UDCUP PO PRN (09:37)
[2017-10-31 11:11] LABS: Basophils % 0.7 % (0.0-0.8); Eosinophils # 0.3 10*3/uL (0.0-0.87); Eosinophils % 5.8 % (0.00-10.9); Hematocrit 32.9 VOL% (35.7-47.0); Hemoglobin 10.6 GM/DL (12.0-16.0); Immature Granulocytes % 0.7 %; Immature Granulocytes Absolute 0.03 #; Lymphocytes # 0.9 10*3/uL (1.4-4.0); Lymphocytes % 19.5 % (21.3-54.2); Mean Corpuscular HGB Conc 32.2 GM/DL (32-36); Mean Corpuscular Hemoglobin 31 PG (27-34); Mean Corpuscular Volume 94.5 FL (87-102); Mean Platelet Volume 9.2 FL (9.6-12.0); Monocytes # 0.6 10*3/uL (0.11-0.8); Monocytes % 12.2 % (1.7-12.7); Neutrophils # 2.8 10*3/uL (1.4-7.4); Neutrophils % 61.1 % (38.7-73.9); Platelet Count 164 T/CUMM (130-400); Red Blood Count 3.48 MC/CUMM (3.8-5.5); Red Cell Distribution Width 14.3 % (9.3-17.3); White Blood Count 4.5 T/CUMM (4-12)
[2017-10-31 11:37] LABS: Calcium 8.5 MG/DL (8.5-10.1)
[2017-11-01 07:51] VITALS: BP 179/70
[2017-11-01] MEDS: POLYETHYLENE GLYCOL POWDER 17 GM PACK PO SCH (08:31)
[2017-11-01] MEDS: ISOSORBIDE MONONITRATE 60 MG TABLET PO SCH (08:35)
[2017-11-01] MEDS: DOCUSATE SODIUM 100 MG CAPSULE PO SCH (08:35)
[2017-11-01] MEDS: ACETAMINOPHEN 325 MG TABLET PO SCH (08:35)
[2017-11-01] MEDS: APIXABAN 2.5 MG TABLET PO SCH (08:35)
[2017-11-01] MEDS: PANTOPRAZOLE 40 MG TABLET PO SCH (08:35)
[2017-11-01] MEDS: LACTOBACILLUS RHAMNOSUS GG CAPSULE PO SCH (08:35)
[2017-11-01] MEDS: COENZYME Q10 100 MG CAPSULE PO SCH (08:35)
[2017-11-01] MEDS: OMEGA 3 ACID ETHYL ESTERS 1 GM CAPSULE PO SCH (08:35)
[2017-11-01] MEDS: PARoxetine 20 MG TABLET PO SCH (08:35)
[2017-11-01] MEDS: guaiFENesin/DM ER 600-30 MG TABLET PO SCH (08:35)
[2017-11-01] MEDS: LISINOPRIL 5 MG TABLET PO SCH (08:36)
[2017-11-01] MEDS: IRON (CARBONYL) 45 MG TABLET PO SCH (08:36)
[2017-11-01] MEDS: NYSTATIN 500,000 UNIT/5 ML UDCUP SWISH/SWAL SCH (08:36)
[2017-11-01] MEDS: HYOSCYAMINE 0.125 MG TABLET PO SCH (08:39)
== END 2017-11-01 09:55 | disposition swing bed (61) | DRG 813 ==
LOC: N.ED 10:05 → N.EDINP 15:49 → SUATTDRO 15:49 → N.5E 17:11 → N.TELEN 10-22 02:28 → N.ICU 10-22 15:51 → N.2E 10-26 15:29
PROVIDERS: ATTEND Internal Medicine
PROC: COLONHP (2017-10-25 07:30)

== ENCOUNTER 2018-05-14 20:49 | Inpatient (IN) ==
[2018-05-14] MEDS ORDERED: PANTOPRAZOLE 40 MG VIAL IV STA (22:02)
[2018-05-14] MEDS ORDERED: DICYCLOMINE 20 MG TABLET PO STA (22:02)
[2018-05-14] MEDS ORDERED: ONDANSETRON 4 MG/2 ML VIAL IV STA (22:02)
[2018-05-14] MEDS ORDERED: SODIUM CHLORIDE 0.9% 1,000 ML IV STA (22:02)
[2018-05-14 22:14] LABS: Basophils % 0.3 % (0.0-0.8); Eosinophils % 0.2 % (0.00-10.9); Hematocrit 41.7 VOL% (35.7-47.0); Hemoglobin 13.8 GM/DL (12.0-16.0); Immature Granulocytes % 0.4 %; Immature Granulocytes Absolute 0.04 #; Lymphocytes # 0.9 10*3/uL (1.4-4.0); Lymphocytes % 8.8 % (21.3-54.2); Mean Corpuscular HGB Conc 33.1 GM/DL (32-36); Mean Corpuscular Hemoglobin 31 PG (27-34); Mean Corpuscular Volume 93.9 FL (87-102); Mean Platelet Volume 9.2 FL (9.6-12.0); Monocytes # 0.7 10*3/uL (0.11-0.8); Monocytes % 6.8 % (1.7-12.7); Neutrophils # 8.2 10*3/uL (1.4-7.4); Neutrophils % 83.5 % (38.7-73.9); Platelet Count 221 T/CUMM (130-400); Red Blood Count 4.44 MC/CUMM (3.8-5.5); Red Cell Distribution Width 13.2 % (9.3-17.3); White Blood Count 9.8 T/CUMM (4-12)
[2018-05-14 22:29] LABS: Albumin 3.5 G/DL (3.4-5.0); Bilirubin,Total 0.9 MG/DL (0.2-1.0); Osmolality,Calculated 274.1 MOS/KG (273-304); Potassium 4.2 MMOL/L (3.5-5.1); Total Protein 6.9 G/DL (6.4-8.3)
[2018-05-14 22:50] LABS: Apearance,Urine CLOUDY (Clear); Bacteria,Urine Few /HPF (Few); Bilirubin,Urine Negative (Negative); Blood, Urine Negative (Negative); Glucose,Urine (UA) Negative (Negative); Hyaline Casts,Urine 70 /LPF (0-3); Ketones,Urine Negative (Negative); Mucus,Urine Occasional /LPF (Occasional); Nitrite,Urine Negative (Negative); Protein,Urine Negative; RBC,Urine 1 /HPF (0-4); Squamous Epithelial Cell,Urine Occasional /HPF (0-10); Urine Color Amber (Yellow); Urine Specific Gravity 1.025 (1.001-1.035); WBC,Urine 1 /HPF (0-6)
[2018-05-15] MEDS ORDERED: ONDANSETRON 4 MG/2 ML VIAL IV PRN (02:13)
[2018-05-15] MEDS ORDERED: ACETAMINOPHEN 325 MG TABLET PO PRN (02:13)
[2018-05-15] MEDS ORDERED: HYDROmorphone 2 MG/1 ML VIAL IV PRN (02:13)
[2018-05-15] MEDS ORDERED: SODIUM CHLORIDE 0.9% 1,000 ML IV SCH (02:13)
[2018-05-15 05:18] LABS: Basophils % 0.5 % (0.0-0.8); Eosinophils # 0.2 10*3/uL (0.0-0.87); Eosinophils % 2.3 % (0.00-10.9); Hematocrit 38.4 VOL% (35.7-47.0); Hemoglobin 12.3 GM/DL (12.0-16.0); Immature Granulocytes % 0.4 %; Immature Granulocytes Absolute 0.03 #; Lymphocytes # 1.5 10*3/uL (1.4-4.0); Lymphocytes % 19.9 % (21.3-54.2); Mean Corpuscular Hemoglobin 31 PG (27-34); Mean Corpuscular Volume 95.8 FL (87-102); Mean Platelet Volume 9.6 FL (9.6-12.0); Monocytes # 0.8 10*3/uL (0.11-0.8); Monocytes % 11.4 % (1.7-12.7); Neutrophils # 4.8 10*3/uL (1.4-7.4); Neutrophils % 65.5 % (38.7-73.9); Platelet Count 185 T/CUMM (130-400); Red Blood Count 4.01 MC/CUMM (3.8-5.5); Red Cell Distribution Width 13.2 % (9.3-17.3); White Blood Count 7.4 T/CUMM (4-12)
[2018-05-15 05:32] LABS: Albumin 2.8 G/DL (3.4-5.0); Bilirubin,Total 1.7 MG/DL (0.2-1.0); Calcium 8.7 MG/DL (8.5-10.1); Potassium 3.8 MMOL/L (3.5-5.1)
[2018-05-15] MEDS ORDERED: IRON (CARBONYL) 45 MG TABLET PO SCH (09:00)
[2018-05-15] MEDS ORDERED: APIXABAN 2.5 MG TABLET PO SCH (09:00)
[2018-05-15] MEDS ORDERED: OMEGA 3 ACID ETHYL ESTERS 1 GM CAPSULE PO SCH (09:00)
[2018-05-15] MEDS ORDERED: FUROSEMIDE 40 MG TABLET PO SCH (09:00)
[2018-05-15] MEDS ORDERED: COENZYME Q10 100 MG CAPSULE PO SCH (09:00)
[2018-05-15] MEDS ORDERED: Omeprazole [Omeprazole] 20 MG PO SCH (09:00)
[2018-05-15] MEDS ORDERED: CHOLESTOFF PO SCH (09:00)
[2018-05-15] MEDS: ISOSORBIDE MONONITRATE 60 MG TABLET PO SCH (09:30)
[2018-05-15] MEDS: DOCUSATE SODIUM 100 MG CAPSULE PO SCH ×2 (09:30→09:49)
[2018-05-15] MEDS: PARoxetine 20 MG TABLET PO SCH (09:30)
[2018-05-15] MEDS: LACTOBACILLUS RHAMNOSUS GG CAPSULE PO SCH ×2 (09:30→21:04)
[2018-05-15] MEDS: DEXT 5% NACL 0.45% KCL 40 MEQ 40 MEQ/1,000 ML BAG IV SCH (09:31)
[2018-05-15] MEDS: PANTOPRAZOLE 40 MG VIAL IV SCH (09:31)
[2018-05-15] MEDS ORDERED: MORPHINE 4 MG/1 ML VIAL IV PRN ×2 (11:17)
[2018-05-16] MEDS: DEXT 5% NACL 0.45% KCL 40 MEQ 40 MEQ/1,000 ML BAG IV SCH ×4 (04:12→15:27)
[2018-05-16 04:30] LABS: Basophils % 0.2 % (0.0-0.8); Eosinophils # 0.3 10*3/uL (0.0-0.87); Eosinophils % 3.2 % (0.00-10.9); Hemoglobin 11.4 GM/DL (12.0-16.0); Immature Granulocytes % 0.5 %; Immature Granulocytes Absolute 0.04 #; Lymphocytes # 1.5 10*3/uL (1.4-4.0); Lymphocytes % 18.7 % (21.3-54.2); Mean Corpuscular HGB Conc 31.7 GM/DL (32-36); Mean Corpuscular Hemoglobin 31 PG (27-34); Mean Corpuscular Volume 97.6 FL (87-102); Mean Platelet Volume 9.5 FL (9.6-12.0); Monocytes # 0.8 10*3/uL (0.11-0.8); Monocytes % 10.3 % (1.7-12.7); Neutrophils # 5.4 10*3/uL (1.4-7.4); Neutrophils % 67.1 % (38.7-73.9); Platelet Count 179 T/CUMM (130-400); Red Blood Count 3.69 MC/CUMM (3.8-5.5); Red Cell Distribution Width 13.3 % (9.3-17.3); White Blood Count 8.1 T/CUMM (4-12)
[2018-05-16 04:44] LABS: Osmolality,Calculated 278.7 MOS/KG (273-304); Potassium 4.6 MMOL/L (3.5-5.1)
[2018-05-16] MEDS: LACTOBACILLUS RHAMNOSUS GG CAPSULE PO SCH ×2 (08:45→21:28)
[2018-05-16] MEDS: PARoxetine 20 MG TABLET PO SCH (08:45)
[2018-05-16] MEDS: PANTOPRAZOLE 40 MG VIAL IV SCH (08:45)
[2018-05-16] MEDS: ISOSORBIDE MONONITRATE 60 MG TABLET PO SCH (13:50)
[2018-05-17] MEDS: DEXT 5% NACL 0.45% KCL 40 MEQ 40 MEQ/1,000 ML BAG IV SCH ×3 (00:58→22:50)
[2018-05-17] MEDS: PANTOPRAZOLE 40 MG VIAL IV SCH (09:04)
[2018-05-17] MEDS: DOCUSATE SODIUM 100 MG CAPSULE PO SCH (09:04)
[2018-05-17] MEDS: PARoxetine 20 MG TABLET PO SCH (09:04)
[2018-05-17] MEDS: LACTOBACILLUS RHAMNOSUS GG CAPSULE PO SCH ×2 (09:04→20:43)
[2018-05-17] MEDS: ISOSORBIDE MONONITRATE 60 MG TABLET PO SCH (09:05)
[2018-05-17] MEDS: APIXABAN 2.5 MG TABLET PO SCH ×2 (09:23→20:43)
[2018-05-18 05:33] LABS: Basophils % 0.4 % (0.0-0.8); Eosinophils # 0.2 10*3/uL (0.0-0.87); Eosinophils % 3.6 % (0.00-10.9); Hematocrit 34.2 VOL% (35.7-47.0); Hemoglobin 10.7 GM/DL (12.0-16.0); Immature Granulocytes % 0.6 %; Immature Granulocytes Absolute 0.03 #; Lymphocytes # 1.3 10*3/uL (1.4-4.0); Lymphocytes % 26.9 % (21.3-54.2); Mean Corpuscular HGB Conc 31.3 GM/DL (32-36); Mean Corpuscular Hemoglobin 31 PG (27-34); Mean Corpuscular Volume 99.4 FL (87-102); Mean Platelet Volume 9.6 FL (9.6-12.0); Monocytes # 0.6 10*3/uL (0.11-0.8); Monocytes % 11.3 % (1.7-12.7); Neutrophils # 2.8 10*3/uL (1.4-7.4); Neutrophils % 57.2 % (38.7-73.9); Platelet Count 161 T/CUMM (130-400); Red Blood Count 3.44 MC/CUMM (3.8-5.5); Red Cell Distribution Width 13.5 % (9.3-17.3)
[2018-05-18 06:10] LABS: Calcium 8.2 MG/DL (8.5-10.1); Osmolality,Calculated 272.1 MOS/KG (273-304)
[2018-05-18 06:21] LABS: Potassium 6.2 MMOL/L (3.5-5.1)
[2018-05-18] MEDS ORDERED: SODIUM POLYSTYRENE SULFATE 15 GM/60 ML BOTTLE PO ONE ×2 (08:53→16:26)
[2018-05-18] MEDS: PARoxetine 20 MG TABLET PO SCH (09:09)
[2018-05-18] MEDS: APIXABAN 2.5 MG TABLET PO SCH ×2 (09:09→21:13)
[2018-05-18] MEDS: PANTOPRAZOLE 40 MG VIAL IV SCH (09:09)
[2018-05-18] MEDS: LACTOBACILLUS RHAMNOSUS GG CAPSULE PO SCH ×2 (09:09→21:14)
[2018-05-18] MEDS: ISOSORBIDE MONONITRATE 60 MG TABLET PO SCH (09:09)
[2018-05-18] MEDS ORDERED: DEXTROSE 5% NACL 0.45% 1,000 ML IV SCH (09:30)
[2018-05-18] MEDS ORDERED: amLODIPine 5 MG TABLET PO ONE (12:35)
[2018-05-18] MEDS ORDERED: SODIUM CHLORIDE 0.9% 1,000 ML IV SCH (13:30)
[2018-05-18] MEDS: DEXT 5% NACL 0.45% KCL 40 MEQ 40 MEQ/1,000 ML BAG IV SCH (15:01)
[2018-05-18] MEDS ORDERED: diphenhydrAMINE CAP 25 MG CAPSULE PO PRN (23:25)
[2018-05-18] MEDS ORDERED: methylPREDNISolone SOD SUC 125 MG/2 ML VIAL IM ONE (23:26)
[2018-05-18] MEDS ORDERED: methylPREDNISolone SOD SUC 125 MG/2 ML VIAL ONE (23:39)
[2018-05-19] MEDS ORDERED: methylPREDNISolone SOD SUC 125 MG/2 ML VIAL IV SCH (00:30)
[2018-05-19 06:24] LABS: Calcium 8.6 MG/DL (8.5-10.1); Potassium 5.1 MMOL/L (3.5-5.1)
[2018-05-19 08:38] VITALS: BP 150/62
[2018-05-19] MEDS: APIXABAN 2.5 MG TABLET PO SCH (08:43)
[2018-05-19] MEDS: PARoxetine 20 MG TABLET PO SCH (08:44)
[2018-05-19] MEDS: PANTOPRAZOLE 40 MG VIAL IV SCH (08:44)
[2018-05-19] MEDS: LACTOBACILLUS RHAMNOSUS GG CAPSULE PO SCH (08:44)
[2018-05-19] MEDS: ISOSORBIDE MONONITRATE 60 MG TABLET PO SCH (08:44)
[2018-05-19] MEDS ORDERED: LISINOPRIL 5 MG TABLET PO ONE (10:08)
== END 2018-05-19 11:10 | disposition home or self-care (01) | DRG 392 ==
LOC: N.EDINP 20:49 → N.ED 20:49 → N.3E 05-15 02:12
PROVIDERS: ADMIT Surgery; ATTEND Surgery